=== PATIENT | male | born 1940 | race Caucasian/White ===

== ENCOUNTER → 2019-04-19 11:40 | Outpatient (CLI) | payer MEDICARE, SELFPAY ==
--- NOTE | 2019-04-19 11:52 | CT_ITS ---
CT head/brain wo con HISTORY: Posttraumatic pain, headache following injury, injury to the right side of the head ITS.REASON: fall ORDERING PHYSICIAN: Denisha Tovar APRN PATIENT AGE: 78 years COMPARISON: None TECHNIQUE: Axial images were obtained. Brain and bone windows reviewed. All CT scans at the facility use one or more dose reduction, viz: automated exposure control, ma/kV adjustment per patient size (including targeted exams where dose is matched to indication, i.e. head), or iterative reconstruction technique. FINDINGS: No midline shift, mass effect, intracranial hemorrhage, hydrocephalus, or extra-axial fluid collection is evident. There is diffuse atrophy with prominence of the subdural space greater in the frontal and parietal areas. No acute intracranial hemorrhage. The calvarium has an unremarkable appearance. No mastoid effusion. No sinus air-fluid levels.. IMPRESSION: 1. No acute finding. 2. Diffuse atrophy. There is prominence of the subdural space greater in the frontal and parietal regions. Subdural hygromas are considered.
== END ==
PROVIDERS: PCP Family Medicine; Visit Provider Nurse Practitioner Family
DX: W19.XXXA Unspecified fall, initial encounter (principal); S09.90XA Unspecified injury of head, initial encounter
CPT/HCPCS: 70450